=== PATIENT | female | born 1975 | race African-American/Black ===

== ENCOUNTER 2017-02-19 23:23 | Emergency (ER) | payer MEDICAID ==
[~2017-02-19] VITALS: Ht 152.4 cm; Wt 45.5 kg
[~2017-02-19 23:23] MED LIST: CEPH-583 PO; NO ROUTINE MEDS
--- OUTSIDE RECORDS SUMMARY | 2017-02-19 23:28 | XMS REPORT | Continuity of Care Document ---
Author Author [facility] Organization [facility] Address Unknown Phone Unavailable Support Name Relationship Address Phone HEMALATHABK MIDDLETNO DO Caregiver [address] [place] [address] Unavailable VAISHALI WASHINGTON Next Of Kin [address] [place], [place] [id number] Insurance Providers Guarantor Forest Washington Address [address], [place] [address] Email DENIED/NO TO PORT Payer [facility] Community Plan Policy Number [id number] Subscriber's Name Forest Washington Relationship 18 Self Effective Date 16 Expiration Date 16 Advance Directives Directive Response Recorded Date/Time Advanced Directives Type None 10/26/16 11:32am Chief Complaint and Reason for Visit Chief Complaint Toothache Reason for Visit Lymphadenopathy Sinusitis [id number] Problems Past Problems Medical Problem Onset Date Lymphadenopathy Unknown Pain, dental Unknown Sinusitis Unknown Medications Current Home Medications Medication Dose Units Route Directions Days Qty Instructions Start Date Cephalexin (Keflex) 500 Mg Capsule 1 Cap Oral Three Times A Day for Sinusitis/Lymphadenopathy 10 Days 30 Capsule 10/26/16 No Routine Meds 10/26/16 Social History Query Response Start Date Stop Date Smoking Status Unknown if ever smoked Hospital Discharge Instructions No hospital discharge instructions. Plan of Care Discharge Date 10/26/16 12:50pm Disposition 01 DISCHARGED HOME, SELF-CARE Condition at Discharge Improved Instructions/Education Provided DI for Sinusitis DI for Lymphadenopathy Prescriptions See Medication Section Referrals Your Doctor Order Date: 1 Day Address: 1-2 days Note: Care Plan and Goals Physician Care Plan Problem: 1. Sinusitis 2. Lymphadenopathy 3. Dental Pain Goal: 1. Follow up with primary care provider and Dentist in 1 day 2. Continue Home Medications 3. Return to the ER with worsening symptoms Instructions: 1. Take medications and follow care plan as discussed/written Functional Status No functional status results. Allergies, Adverse Reactions, Alerts Allergen Type Severity Reaction Status Last Updated Ibuprofen Allergy Intermediate HIVES Active 10/26/16 Erythromycin base Allergy Intermediate HIVES Active 10/26/16 Clindamycin Allergy Intermediate HIVES Active 10/26/16 Immunizations No immunization records. Vital Signs Acute Vital Signs Vital Response Date/Time Temperature (Fahrenheit) 99.0 deg F (96.8 - 99.1) 10/26/2016 12:50pm Temperature (Calculated Celsius) 37.40860 degrees C (36.0 - 37.3) 10/26/2016 12:50pm Pulse Rate (adult) 87 bpm (60 - 100) 10/26/2016 12:50pm Respiratory Rate 16 breaths/min (10 - 20) 10/26/2016 12:50pm O2 Sat by Pulse Oximetry 99 % (90 - 100) 10/26/2016 12:50pm Blood Pressure 99/58 mm Hg 10/26/2016 12:50pm Blood Pressure 99/58 mm Hg 10/26/2016 12:50pm Height (Feet) 5 feet 10/26/2016 11:32am Height (Inches) 3.00 inches 10/26/2016 11:32am Weight (Kilograms) 72.500 kg 10/26/2016 11:32am Body Mass Index (BMI) 28.0 10/26/2016 11:32am Results No known relevant diagnostic tests, laboratory data and/or discharge summary. Procedures No known history of procedures. Encounters Encounter Location Arrival/Admit Date Discharge/Depart Date Attending Provider Departed Emergency Room [facility] 10/26/16 11:29am 10/26/16 12: 50pm BK PENNY DO Recent Diagnosis
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
[2017-02-19 23:30] VITALS: Ht 152.4 cm; Wt 45.5 kg
[2017-02-20 00:07] LABS: BLOOD, URINE 3+ (NEGATIVE); COLOR,URINE BROWN (YELLOW); LEUKOCYTE ESTERASE ,URINE 2+ (NEGATIVE); NITRITE,URINE NEGATIVE (NEGATIVE)
[2017-02-20 00:08] LABS: BACTERIA,URINE 1+ (NEGATIVE); RBC,URINE TNTC /HPF (0-3); WBC,URINE TNTC /HPF (0-5)
[2017-02-20] MEDS ORDERED: PHEN-778 PO (00:16)
[2017-02-20] MEDS ORDERED: NITR100C4 PO (00:16)
--- NOTE | 2017-02-20 00:16 | ERPDOC ---
Departure Disposition Decision Date: Feb 20, 2017 Disposition Decision Time: 00:14 Disposition: 01 DISCHARGED HOME, SELF-CARE Impression Impression Impression: Primary Impression: UTI (urinary tract infection) Urinary tract infection type: acute cystitis Hematuria presence: with hematuria Qualified Codes: N30.01 - Acute cystitis with hematuria Severity: Moderate Condition: Improved Seen By: Physician only Referrals: YOUR PHYSICIAN 1 Week Patient Instructions: Urinary Tract Infection in Women (ED) Problems/Meds/Labs Reviewed?: Yes Medications reviewed and manag: Yes Additional Instructions: You have a urinary tract infection. Take the antibiotic as prescribed. Use the pyridium to help with your pain. Drink plenty of fluids. Follow up with your doctor in the next few days. Follow up care ordered?: Yes Mental Status: Alert, Oriented Scripts Phenazopyridine HCl (Pyridium) 100 Mg Tablet 95 MG PO TID for 3 Days, #9 TAB Prov: MARCH,ROSLYN DO 02/20/17 Nitrofurantoin Monohyd/M-Cryst (Macrobid 100 mg Capsule) 100 Mg Capsule 100 MG PO BID for 7 Days, #14 CAP 0 Refills Prov: MARCH,ROSLYN DO 02/20/17 HPI - Female General Chief Complaint: Female Urogenital Problems Stated Complaint: POSS BLADDER INFECTION Time Seen by Provider: 00:09 Source: patient Exam Limitations: no limitations HPI - Female Initial Comments 42yo woman presents tonight with dysuria. Sx have been present for the last several hours. Pt has a long h/o UTI's - gets them q3mos on average. Occurred At: home Onset: Rapid Duration: 6-12 hrs Pain Scale: Now & Worst: 7/10 Severity/Quality: burning, cramping, throbbing Location: urethral Radiation: none Activities at Onset: none Prior Genitourinary Problems: similar symptoms Sexual [place] History: single partner Modifying Factors: IMPROVES WITH: analgesics, WORSE WITH: urinating Associated Symptoms: denies symptoms Hx of Similar Symptoms: Yes Is Pt now?: No Allergies: Coded Allergies: clindamycin (Verified Allergy, Intermediate, HIVES, 10/26/16) erythromycin base (Verified Allergy, Intermediate, HIVES, 10/26/16) ibuprofen (Verified Allergy, Intermediate, HIVES, 10/26/16) Past History Past Medical History Pt denies signifigant PMH Hx Echocardiogram: No Musculoskeletal: back pain Surgical History General: other Social History Does patient use chewing tobac: No Second Hand Exposure: No Substance Use Type: does not use Alcohol Intake: none Marital Status: Single Housing: house Household Members: family Service: No Advance Directives: Yes Full Code Review of Systems General: burning, cloudy urine, dysuria, frequency, pain, urgency All other Systems All Other Systems: Reviewed and Negative Physical Exam General General Nourishment: well nourished, well developed, appears stated age, no acute distress, adult Vitals and Pain Weight: Kilograms: Height (feet): 5 Height (inches): 3.00 Triage Pain Scale: Supervisory Exam Head: atraumatic Eyes: PERRL Nares: no exudate Neck: trachea midline Chest: symmetric Abdomen: non-distended Musculoskeletal: no deformity or atrophy Neurological: no abnormal movements Skin: pink, dry Psychological: alert, appropriate Differential Diagnoses Considering: IBS, IBD, PID, Pyelonephritis, Renal Colic, UTI, Bacterial Vaginitis Progress Results/Orders Orders Procedure Category Date Status Time UA, LAB 02/19/17 Complete Dip&Micro(Complete) & 23:52 Urine Culture EMMANUEL 02/20/17 In Process 00:09 Nitrofurantoin PHA 02/20/17 In Process (Perpack) (Macrobid 00:30 Phenazopyridine Hcl PHA 02/20/17 In Process (Pyridium Eq.) 00:30 Lab Results Laboratory Tests Test 02/19/17 23:52 Urine Collection Type Cleancatch-midstream Urine Color Brown Urine Turbidity Cloudy Urine pH 6.5 Urine Specific [place] 1.025 Urine Protein 3+ Urine Glucose (UA) Trace Urine Ketones Trace Urine Blood 3+ Urine Nitrite Negative Urine Bilirubin 2+ Urine Urobilinogen 1.0EU/DL Urine Leukocyte Esterase 2+ Urine RBC Tntc/HPF Urine WBC Tntc/HPF Urine Bacteria 1+ Urine Culture Indicated Cult reflexed &setup Medications Current ED Medications Nitrofurantoin Macrocrystals (MACROBID (PrePack)) 1 pack O ONCE SENT HOME ; Start 02/20/17 at 00:30; Stop 02/20/17 at 00:31 Phenazopyridine HCl (Pyridium Eq.) 95 mg O ONCE PO ; Start 02/20/17 at 00:30; Stop 02/20/17 at 00:31 Progress Progress Pt with classic UTI sx and UA evidence of same. Will rx empiric atbx and instruct pt to f/u with PCM. Pt voiced understanding. ROSLYN CROCKETT DO Feb 20, 2017 00:16
[2017-02-20 00:25] VITALS: BP 144/70; PULSE 99; RESP 18; TEMP 97.8; O2SAT 97
--- NOTE | 2017-02-20 00:25 | NUR ---
DEPART PT IS GIVEN DISMISSAL INSTRUCTIONS WITH VERBAL UNDEDRSTANDING. PT IS GIVEN PO MEDS AND PREPACK, AND PRESCRIPTION FOR HOME. PT LEAVES [facility] TO ED EXIT
[2017-02-20] MEDS ORDERED: PHENAZOPYRIDINE 95 MG TABLET PO ONE (00:30)
[2017-02-20] MEDS ORDERED: MACROBID 100mg #2 (PrePack) SENT HOME ONE (00:30)
--- OUTSIDE RECORDS SUMMARY | 2017-02-20 00:36 | XMS REPORT | Continuity of Care Document ---
Author Author [facility] Organization [facility] Address Unknown Phone Unavailable Allergies Active Description [...] Status Pt. Type Provider Facility Loc./Unit Complaint [id number] 12/06/2012 11:57:00 2012 13:15:00 DIS Emergency Vineet MARSH, [facility] on [address]
== END 2017-02-20 00:25 | disposition home or self-care (01) ==
LOC: ED 23:23
DX: N30.01 Acute cystitis with hematuria (principal)
CPT/HCPCS: 81001; 87086